=== PATIENT | female | born 1935 | race Caucasian/White ===

== ENCOUNTER 2017-10-03 10:35 | Inpatient (IN) | payer MEDICARE, OTHER ==
[~2017-10-03] VITALS: Ht 162.6 cm; Wt 74.2 kg
[2017-10-03] MEDS ORDERED: CHOL5000 PO (15:07)
[2017-10-03] MEDS ORDERED: MISO200T4 PO (15:07)
[2017-10-03] MEDS ORDERED: FENO145T32 PO (15:07)
[2017-10-03] MEDS ORDERED: APIX5TAB PO (15:07)
[2017-10-03] MEDS ORDERED: EZET10TA18 PO (15:07)
[2017-10-03] MEDS ORDERED: VIT1TABL32 PO (15:07)
[2017-10-03] MEDS ORDERED: MULT-672 PO (15:07)
[2017-10-03] MEDS ORDERED: CYAN50003 PO (15:07)
[2017-10-03] MEDS ORDERED: MELA1TAB22 PO (15:07)
[2017-10-03] MEDS ORDERED: ASCO10004 PO (15:07)
[2017-10-03] MEDS ORDERED: ESTR0.6246 PO (15:07)
[2017-10-03] MEDS ORDERED: ESOM40CA PO (15:07)
[2017-10-03] MEDS ORDERED: SENN8.6T58 PO (15:07)
[2017-10-03] MEDS ORDERED: GABA300C10 PO (15:07)
[2017-10-03] MEDS ORDERED: TOLT2TAB4 PO (15:07)
[2017-10-03] MEDS ORDERED: DIPH25CA61 PO (15:07)
[2017-10-03] MEDS ORDERED: ALPR0.254 PO (15:07)
[2017-10-03] MEDS ORDERED: FLUO10TA PO (15:07)
[2017-10-03] MEDS ORDERED: FERR-46 PO (15:07)
[2017-10-03] MEDS ORDERED: ASPI-496 PO (15:07)
[2017-10-03] MEDS ORDERED: linzess PO (15:07)
[2017-10-03] MEDS ORDERED: SUCR1TAB PO (15:07)
[2017-10-03] MEDS ORDERED: METO25TA35 PO (15:07)
[2017-10-07] MEDS ORDERED: LACTATED RINGERS 1,000 ML IV SCH (06:13)
[2017-10-07 06:43] VITALS: BP 165/78
[2017-10-07] MEDS ORDERED: BUPIVACAINE/PF-EPI 0.5% 1:200K ONE (06:50)
[2017-10-07] MEDS ORDERED: THROMBIN 5,000 UNIT VIAL TP ONE ×2 (07:02→08:48)
[2017-10-07] MEDS ORDERED: LIDOCAINE GEL 2%, 5ML ONE (07:25)
[2017-10-07] MEDS ORDERED: FENTANYL PF 100 MCG/2ML ONE ×3 (07:25→11:09)
[2017-10-07] MEDS ORDERED: LIDOCAINE-MPF 2% ,5ML ONE (07:27)
[2017-10-07] MEDS ORDERED: GABAPENTIN 300 MG CAPSULE PO ONE (07:30)
[2017-10-07] MEDS ORDERED: METOPROLOL TARTRATE 25 MG TABLET PO ONE (07:30)
[2017-10-07] MEDS ORDERED: ACETAMINOPHEN 500 MG TABLET PO ONE (07:30)
[2017-10-07] MEDS ORDERED: ONDANSETRON ODT 8 MG PO ONE (07:30)
[2017-10-07] MEDS ORDERED: ROCURONIUM 10 MG/ML,10ML ONE (07:41)
[2017-10-07] MEDS ORDERED: SUCCINYLCHOLINE 20 MG/ML, 10ML ONE (07:41)
[2017-10-07] MEDS ORDERED: DEXAMETHASONE 4 MG/ML, 1ML ONE (08:21)
[2017-10-07] MEDS ORDERED: PROPOFOL 10 MG/ML, 20ML ONE (08:21)
[2017-10-07] MEDS ORDERED: CEFAZOLIN 1,000 MG ONE (08:21)
[2017-10-07] MEDS ORDERED: ALBUTEROL/IPRATROPIUM 2.5MG/0.5MG, 3 ML NPPB PRN (08:30)
[2017-10-07] MEDS ORDERED: hydrALAzine 20 MG/ML, 1ML IV PRN (08:30)
[2017-10-07] MEDS ORDERED: HYDROmorphone 1 MG/ML, 1ML IV PRN (08:30)
[2017-10-07] MEDS ORDERED: OXYcodone 5 MG/5 ML ORAL.SOL UDC PO PRN (08:30)
[2017-10-07] MEDS ORDERED: PROMETHAZINE 25 MG/ML, 1ML IV PRN (08:30)
[2017-10-07] MEDS ORDERED: ONDANSETRON 2MG/ML, 2ML IV PRN ×2 (08:30→13:30)
[2017-10-07] MEDS ORDERED: MIDAZOLAM 1 MG/ML, 2ML IV PRN (08:30)
[2017-10-07] MEDS ORDERED: VANCOMYCIN 1,000 MG ONE (09:42)
[2017-10-07] MEDS ORDERED: VANCOMYCIN 1,000 MG IM ONE (09:44)
[2017-10-07] MEDS ORDERED: METOPROLOL 1 MG/ML, 5ML ONE ×2 (10:28→12:25)
[2017-10-07] MEDS: METOPROLOL 1 MG/ML, 5ML IV PRN ×6 (10:40→11:51)
[2017-10-07] MEDS ORDERED: HYDROmorphone 2 MG/ML, 1ML ONE (10:54)
[2017-10-07] MEDS ORDERED: OXYcodone 5 MG/5 ML ORAL.SOL UDC ONE (10:55)
[2017-10-07] MEDS ORDERED: TRANEXAMIC ACID 100 MG/ML, 10ML IVPB ONE (11:00)
[2017-10-07] MEDS ORDERED: TRANEXAMIC ACID 1,000 MG in SODIUM CHLORIDE 0.9% 100 ML IV ONE (11:00)
[2017-10-07] MEDS: FENTANYL PF 100 MCG/2ML IV PRN ×2 (11:10→12:30)
[2017-10-07] MEDS ORDERED: METOPROLOL 1 MG/ML, 5ML IV PRN (12:30)
[2017-10-07 13:10] VITALS: BP 142/69
[2017-10-07] MEDS ORDERED: KETOROLAC 30 MG/1 ML IV ONE (13:30)
[2017-10-07] MEDS ORDERED: DIAZEPAM 5 MG/ML, 2ML IV PRN (13:30)
[2017-10-07] MEDS ORDERED: HYDROmorphone 2 MG/ML, 1ML IM PRN (13:30)
[2017-10-07] MEDS ORDERED: DIPHENHYDRAMINE 50 MG CAPSULE PO PRN (13:30)
[2017-10-07] MEDS ORDERED: PROMETHAZINE 25 MG/ML, 1ML IM PRN (13:30)
[2017-10-07] MEDS ORDERED: DIPHENHYDRAMINE 50 MG/ML, 1ML IM PRN (13:30)
[2017-10-07] MEDS ORDERED: LORazepam 1MG TABLET PO PRN (13:30)
[2017-10-07] MEDS ORDERED: DIPHENHYDRAMINE 50 MG/ML, 1ML IVPush PRN (13:30)
[2017-10-07] MEDS ORDERED: DIAZEPAM 5 MG TABLET PO PRN (13:30)
[2017-10-07] MEDS ORDERED: MAGNESIUM HYDROXIDE 8%, 30ML UDC PO PRN (13:30)
[2017-10-07] MEDS ORDERED: KETOROLAC 30 MG/1 ML IM PRN (13:30)
[2017-10-07] MEDS ORDERED: BISACODYL 10 MG SUPP PR PRN (13:30)
[2017-10-07] MEDS ORDERED: LABETALOL 5MG/ML, 20ML IV PRN ×2 (13:30)
[2017-10-07] MEDS ORDERED: HYDROmorphone 2MG TABLET PO PRN (13:30)
[2017-10-07 14:00] VITALS: BP 144/60
[2017-10-07] MEDS ORDERED: ACETAMINOPHEN 650 MG SUPP PR PRN (14:00)
[2017-10-07] MEDS ORDERED: SODIUM CHLORIDE 0.9% 1,000 ML IV PRN (14:00)
[2017-10-07] MEDS ORDERED: DEXAMETHASONE 4 MG/ML, 1ML IVPush PRN (14:00)
[2017-10-07] MEDS ORDERED: ACETAMINOPHEN 325 MG TABLET PO PRN (14:00)
[2017-10-07] MEDS: OXYcodone IR 5MG TABLET PO PRN ×2 (16:27→19:47)
[2017-10-07] MEDS: MISOPROSTOL 200 MCG TABLET PO SCH ×2 (16:27→20:57)
[2017-10-07] MEDS: SUCRALFATE 1 GM TABLET PO SCH ×2 (16:32→20:57)
[2017-10-07 18:01] VITALS: BP 114/44
[2017-10-07] MEDS: D5%-0.9% NACL+KCL 20MEQ 1,000 ML IV SCH (18:14)
[2017-10-07] MEDS: METOPROLOL TARTRATE 25 MG TABLET PO SCH (18:14)
[2017-10-07] MEDS: CEFAZOLIN PMX 1GM/50ML 50 ML IVPB SCH (18:14)
[2017-10-07 19:24] VITALS: BP 124/54
[2017-10-07] MEDS ORDERED: SUCRALFATE 1 GM/10 ML UDC ONE (20:44)
[2017-10-07] MEDS: MELATONIN 3 MG TABLET PO SCH (20:58)
[2017-10-07] MEDS: ASCORBIC ACID 500 MG TABLET PO SCH (20:58)
[2017-10-07] MEDS: GABAPENTIN 300 MG CAPSULE PO SCH (20:58)
[2017-10-07] MEDS ORDERED: TOLTERODINE 2MG TABLET PO SCH (21:00)
[2017-10-07] MEDS ORDERED: ZOLPIDEM 5MG TABLET PO PRN (21:00)
[2017-10-07] MEDS ORDERED: KETOROLAC 30 MG/1 ML IV PRN (21:30)
[2017-10-08 00:47] VITALS: BP 144/59
[2017-10-08] MEDS: CEFAZOLIN PMX 1GM/50ML 50 ML IVPB SCH (02:03)
[2017-10-08] MEDS: OXYcodone IR 5MG TABLET PO PRN ×5 (04:45→21:11)
[2017-10-08 04:47] VITALS: BP 145/62
[2017-10-08 05:13] LABS: BASOPHILS # (AUTO) 0.01 x10^3/uL (0-0.1); BASOPHILS % (AUTO) 0 % (0-1); EOSINOPHILS # (AUTO) 0.03 x10^3/uL (0-0.4); EOSINOPHILS % (AUTO) 0 % (1-7); LYMPHOCYTES # (AUTO) 0.74 x10^3/uL (1-3.4); LYMPHOCYTES % (AUTO) 11 % (22-44); MD NO; MEAN CORPUSCULAR HEMOGLOBIN 31.4 pg (27.0-34.8); MEAN CORPUSCULAR HGB CONC 32.9 g/dL (32.4-35.8); MEAN CORPUSCULAR VOLUME 95.7 fL (80-100); MEAN PLATELET VOLUME 8.9 fL (7.4-10.4); MONOCYTES # (AUTO) 0.53 x10^3/uL (0.2-0.8); MONOCYTES % (AUTO) 8 % (2-9); NEUTROPHILS # (AUTO) 5.68 x10^3/uL (1.8-6.8); NEUTROPHILS % (AUTO) 81 % (42-75); PLATELET COUNT 170 x10^3/uL (130-400); RED BLOOD COUNT 3.51 x10^6/uL (3.82-5.3); RED CELL DISTRIBUTION WIDTH 15.4 % (9.6-15.2)
[2017-10-08] MEDS ORDERED: SUCRALFATE 1 GM/10 ML UDC ONE ×2 (05:51→11:35)
[2017-10-08] MEDS: SUCRALFATE 1 GM TABLET PO SCH ×4 (05:53→21:11)
[2017-10-08] MEDS: ASPIRIN 81 MG TABLET EC PO SCH (05:53)
[2017-10-08] MEDS: METOPROLOL TARTRATE 25 MG TABLET PO SCH ×2 (05:53→18:32)
[2017-10-08] MEDS: D5%-0.9% NACL+KCL 20MEQ 1,000 ML IV SCH ×2 (05:59→15:00)
[2017-10-08 07:02] VITALS: BP 125/70
[2017-10-08 07:04] VITALS: BP 125/70
[2017-10-08] MEDS: PANTOPROZOLE 40MG TABLET PO SCH (07:49)
[2017-10-08] MEDS: FERROUS SULFATE 325 MG TABLET PO SCH (08:41)
[2017-10-08] MEDS: MULTIVITAMINS/MINERALS TABLET PO SCH (08:41)
[2017-10-08] MEDS: FENOFIBRATE 145 MG TABLET PO SCH (08:41)
[2017-10-08] MEDS: ASCORBIC ACID 500 MG TABLET PO SCH ×2 (08:41→21:11)
[2017-10-08] MEDS: FLUOXETINE 10 MG CAP PO SCH (08:41)
[2017-10-08] MEDS: SENNA/DOCUSATE TABLET PO SCH (08:41)
[2017-10-08] MEDS: CHOLECALCIFEROL 5,000u TAB PO SCH (08:41)
[2017-10-08] MEDS: EZETIMIBE 10 MG TABLET PO SCH (08:41)
[2017-10-08] MEDS: MISOPROSTOL 200 MCG TABLET PO SCH ×3 (08:42→21:12)
[2017-10-08] MEDS: SENNOSIDES 8.6 MG TABLET PO SCH (08:42)
[2017-10-08] MEDS: ESTROGENS CONJUGATED 0.625 MG TABLET PO SCH (08:42)
[2017-10-08] MEDS: CYANOCOBALAMIN 1,000 MCG TABLET PO SCH (12:20)
[2017-10-08 12:53] VITALS: BP 140/72
[2017-10-08] MEDS: OXYBUTYNIN CHLORIDE 5 MG TABLET PO SCH ×2 (15:55→21:11)
[2017-10-08 20:46] VITALS: BP 144/75
[2017-10-08] MEDS: GABAPENTIN 300 MG CAPSULE PO SCH (21:00)
[2017-10-08] MEDS: MELATONIN 3 MG TABLET PO SCH (21:12)
[2017-10-09] MEDS: D5%-0.9% NACL+KCL 20MEQ 1,000 ML IV SCH ×3 (00:15→20:48)
[2017-10-09] MEDS: OXYcodone IR 5MG TABLET PO PRN ×5 (01:15→20:44)
[2017-10-09 01:52] VITALS: BP 162/82
[2017-10-09 05:30] LABS: BASOPHILS # (AUTO) 0.02 x10^3/uL (0-0.1); BASOPHILS % (AUTO) 0 % (0-1); EOSINOPHILS # (AUTO) 0.12 x10^3/uL (0-0.4); EOSINOPHILS % (AUTO) 2 % (1-7); LYMPHOCYTES # (AUTO) 0.84 x10^3/uL (1-3.4); LYMPHOCYTES % (AUTO) 16 % (22-44); MD NO; MEAN CORPUSCULAR HEMOGLOBIN 31.7 pg (27.0-34.8); MEAN CORPUSCULAR HGB CONC 33.4 g/dL (32.4-35.8); MEAN CORPUSCULAR VOLUME 94.9 fL (80-100); MEAN PLATELET VOLUME 8.8 fL (7.4-10.4); MONOCYTES % (AUTO) 11 % (2-9); NEUTROPHILS # (AUTO) 3.81 x10^3/uL (1.8-6.8); NEUTROPHILS % (AUTO) 71 % (42-75); PLATELET COUNT 169 x10^3/uL (130-400); RED BLOOD COUNT 3.24 x10^6/uL (3.82-5.3); RED CELL DISTRIBUTION WIDTH 15.2 % (9.6-15.2)
[2017-10-09] MEDS: SUCRALFATE 1 GM TABLET PO SCH ×4 (06:10→21:00)
[2017-10-09] MEDS: ASPIRIN 81 MG TABLET EC PO SCH (06:10)
[2017-10-09] MEDS: METOPROLOL TARTRATE 25 MG TABLET PO SCH ×2 (06:10→18:00)
[2017-10-09 07:10] VITALS: BP 146/63
[2017-10-09] MEDS: SENNA/DOCUSATE TABLET PO SCH (09:00)
[2017-10-09] MEDS: SENNOSIDES 8.6 MG TABLET PO SCH (09:00)
[2017-10-09] MEDS: MULTIVITAMINS/MINERALS TABLET PO SCH (09:00)
[2017-10-09] MEDS: PANTOPROZOLE 40MG TABLET PO SCH ×2 (09:01→10:29)
[2017-10-09] MEDS: CYANOCOBALAMIN 1,000 MCG TABLET PO SCH (09:01)
[2017-10-09] MEDS: ESTROGENS CONJUGATED 0.625 MG TABLET PO SCH ×2 (09:01→10:29)
[2017-10-09] MEDS: ASCORBIC ACID 500 MG TABLET PO SCH ×2 (09:01→23:53)
[2017-10-09] MEDS: EZETIMIBE 10 MG TABLET PO SCH ×2 (09:01→10:29)
[2017-10-09] MEDS: OXYBUTYNIN CHLORIDE 5 MG TABLET PO SCH ×3 (09:02→21:31)
[2017-10-09] MEDS: CHOLECALCIFEROL 5,000u TAB PO SCH ×2 (09:02→10:30)
[2017-10-09] MEDS: FERROUS SULFATE 325 MG TABLET PO SCH (09:02)
[2017-10-09] MEDS: MISOPROSTOL 200 MCG TABLET PO SCH ×3 (09:02→20:44)
[2017-10-09] MEDS: FENOFIBRATE 145 MG TABLET PO SCH (09:02)
[2017-10-09] MEDS: FLUOXETINE 10 MG CAP PO SCH (09:02)
[2017-10-09 13:09] VITALS: BP 142/63
[2017-10-09 18:30] VITALS: BP 130/58
[2017-10-09 18:42] VITALS: BP 153/79
[2017-10-09] MEDS: GABAPENTIN 300 MG CAPSULE PO SCH (21:00)
[2017-10-09] MEDS: MELATONIN 3 MG TABLET PO SCH (21:00)
[2017-10-09] MEDS ORDERED: SUCRALFATE 1 GM/10 ML UDC ONE (21:26)
[2017-10-09] MEDS: SUCRALFATE 1 GM/10 ML UDC PO SCH (23:55)
[2017-10-10 01:55] VITALS: BP 159/76
[2017-10-10] MEDS: OXYcodone IR 5MG TABLET PO PRN ×3 (04:10→16:23)
[2017-10-10 05:25] LABS: BASOPHILS # (AUTO) 0.01 x10^3/uL (0-0.1); BASOPHILS % (AUTO) 0 % (0-1); EOSINOPHILS # (AUTO) 0.19 x10^3/uL (0-0.4); EOSINOPHILS % (AUTO) 4 % (1-7); LYMPHOCYTES # (AUTO) 0.78 x10^3/uL (1-3.4); LYMPHOCYTES % (AUTO) 15 % (22-44); MD NO; MEAN CORPUSCULAR HEMOGLOBIN 31.1 pg (27.0-34.8); MEAN CORPUSCULAR HGB CONC 33.1 g/dL (32.4-35.8); MEAN CORPUSCULAR VOLUME 93.9 fL (80-100); MEAN PLATELET VOLUME 8.6 fL (7.4-10.4); MONOCYTES # (AUTO) 0.54 x10^3/uL (0.2-0.8); MONOCYTES % (AUTO) 11 % (2-9); NEUTROPHILS # (AUTO) 3.58 x10^3/uL (1.8-6.8); NEUTROPHILS % (AUTO) 70 % (42-75); PLATELET COUNT 174 x10^3/uL (130-400); RED CELL DISTRIBUTION WIDTH 14.7 % (9.6-15.2)
[2017-10-10] MEDS: SUCRALFATE 1 GM/10 ML UDC PO SCH ×4 (06:38→20:44)
[2017-10-10] MEDS: ASPIRIN 81 MG TABLET EC PO SCH (06:38)
[2017-10-10] MEDS: METOPROLOL TARTRATE 25 MG TABLET PO SCH ×2 (06:49→18:23)
[2017-10-10] MEDS: CHOLECALCIFEROL 5,000u TAB PO SCH (07:51)
[2017-10-10] MEDS: SENNA/DOCUSATE TABLET PO SCH (07:52)
[2017-10-10] MEDS: FENOFIBRATE 145 MG TABLET PO SCH (07:52)
[2017-10-10] MEDS: EZETIMIBE 10 MG TABLET PO SCH (07:52)
[2017-10-10] MEDS: ESTROGENS CONJUGATED 0.625 MG TABLET PO SCH (07:52)
[2017-10-10] MEDS: ASCORBIC ACID 500 MG TABLET PO SCH ×2 (07:52→21:00)
[2017-10-10] MEDS: FERROUS SULFATE 325 MG TABLET PO SCH (07:52)
[2017-10-10] MEDS: PANTOPROZOLE 40MG TABLET PO SCH (07:52)
[2017-10-10] MEDS: D5%-0.9% NACL+KCL 20MEQ 1,000 ML IV SCH ×3 (07:53→21:58)
[2017-10-10 08:31] VITALS: BP 111/48
[2017-10-10 08:47] VITALS: BP 133/90
[2017-10-10] MEDS: CYANOCOBALAMIN 1,000 MCG TABLET PO SCH (10:20)
[2017-10-10] MEDS: FLUOXETINE 10 MG CAP PO SCH (10:21)
[2017-10-10] MEDS: MULTIVITAMINS/MINERALS TABLET PO SCH (10:21)
[2017-10-10] MEDS: OXYBUTYNIN CHLORIDE 5 MG TABLET PO SCH ×3 (10:21→21:56)
[2017-10-10] MEDS: MISOPROSTOL 200 MCG TABLET PO SCH ×3 (10:21→21:55)
[2017-10-10] MEDS: SENNOSIDES 8.6 MG TABLET PO SCH (10:21)
[2017-10-10 14:04] VITALS: BP 173/74
[2017-10-10 15:00] VITALS: BP 167/90
[2017-10-10 19:05] VITALS: BP 146/64
[2017-10-10] MEDS: APIXABAN 5 MG TABLET PO SCH (20:35)
[2017-10-10] MEDS: MELATONIN 3 MG TABLET PO SCH (21:00)
[2017-10-10] MEDS: GABAPENTIN 300 MG CAPSULE PO SCH (21:00)
[2017-10-11] MEDS: OXYcodone IR 5MG TABLET PO PRN ×3 (00:10→10:25)
[2017-10-11 02:23] VITALS: BP 156/75
[2017-10-11 05:02] LABS: BASOPHILS # (AUTO) 0.03 x10^3/uL (0-0.1); BASOPHILS % (AUTO) 1 % (0-1); EOSINOPHILS # (AUTO) 0.26 x10^3/uL (0-0.4); EOSINOPHILS % (AUTO) 5 % (1-7); LYMPHOCYTES # (AUTO) 0.83 x10^3/uL (1-3.4); LYMPHOCYTES % (AUTO) 17 % (22-44); MD NO; MEAN CORPUSCULAR HEMOGLOBIN 31.5 pg (27.0-34.8); MEAN CORPUSCULAR HGB CONC 33.3 g/dL (32.4-35.8); MEAN CORPUSCULAR VOLUME 94.7 fL (80-100); MEAN PLATELET VOLUME 8.8 fL (7.4-10.4); MONOCYTES # (AUTO) 0.51 x10^3/uL (0.2-0.8); MONOCYTES % (AUTO) 10 % (2-9); NEUTROPHILS # (AUTO) 3.28 x10^3/uL (1.8-6.8); NEUTROPHILS % (AUTO) 67 % (42-75); PLATELET COUNT 214 x10^3/uL (130-400); RED BLOOD COUNT 3.66 x10^6/uL (3.82-5.3); RED CELL DISTRIBUTION WIDTH 14.8 % (9.6-15.2)
[2017-10-11] MEDS: ASPIRIN 81 MG TABLET EC PO SCH (05:45)
[2017-10-11] MEDS: SUCRALFATE 1 GM/10 ML UDC PO SCH (05:45)
[2017-10-11] MEDS: METOPROLOL TARTRATE 25 MG TABLET PO SCH (05:45)
[2017-10-11] MEDS: PANTOPROZOLE 40MG TABLET PO SCH (07:30)
[2017-10-11 08:05] VITALS: BP 156/55
[2017-10-11] MEDS: SENNOSIDES 8.6 MG TABLET PO SCH (09:00)
[2017-10-11] MEDS: MISOPROSTOL 200 MCG TABLET PO SCH (09:01)
[2017-10-11] MEDS: EZETIMIBE 10 MG TABLET PO SCH (09:01)
[2017-10-11] MEDS: CYANOCOBALAMIN 1,000 MCG TABLET PO SCH ×2 (09:01→09:11)
[2017-10-11] MEDS: SENNA/DOCUSATE TABLET PO SCH (09:01)
[2017-10-11] MEDS: APIXABAN 5 MG TABLET PO SCH (09:01)
[2017-10-11] MEDS: ASCORBIC ACID 500 MG TABLET PO SCH ×2 (09:01→09:12)
[2017-10-11] MEDS: OXYBUTYNIN CHLORIDE 5 MG TABLET PO SCH (09:01)
[2017-10-11] MEDS: CHOLECALCIFEROL 5,000u TAB PO SCH ×2 (09:01→09:11)
[2017-10-11] MEDS: FLUOXETINE 10 MG CAP PO SCH (09:01)
[2017-10-11] MEDS: FERROUS SULFATE 325 MG TABLET PO SCH (09:01)
[2017-10-11] MEDS: ESTROGENS CONJUGATED 0.625 MG TABLET PO SCH (09:08)
[2017-10-11] MEDS: MULTIVITAMINS/MINERALS TABLET PO SCH ×2 (09:08→09:11)
[2017-10-11] MEDS: FENOFIBRATE 145 MG TABLET PO SCH (09:15)
[2017-10-11] MEDS ORDERED: OXYC5TAB3 PO (10:56)
[2017-10-11] MEDS ORDERED: CYCL-259 PO (10:57)
[2017-10-11] MEDS ORDERED: CEPH-368 PO (10:59)
== END 2017-10-11 12:05 | disposition home or self-care (01) | DRG 478 ==
LOC: ORIP 10:35 → UNDOADMIN 10:35 → ORIP 10-07 05:27 → 4NOR 10-07 13:04 → DCLOUNGE 10-11 11:43
PROVIDERS: ADMIT Orthopaedic Surgery Orthopaedic Surgery of the Spine; ATTEND Orthopaedic Surgery Orthopaedic Surgery of the Spine
PROC: 0PU43JZ Supplement Thoracic Vertebra with Synthetic Substitute, Percutaneous Approach (ICD-10-PCS; 2017-10-07)
PROC: 0SP004Z Removal of Internal Fixation Device from Lumbar Vertebral Joint, Open Approach (ICD-10-PCS; 2017-10-07)
PROC: 0PS43ZZ Reposition Thoracic Vertebra, Percutaneous Approach (ICD-10-PCS; principal; 2017-10-07 07:30)
PROC: 0PB40ZX Excision of Thoracic Vertebra, Open Approach, Diagnostic (ICD-10-PCS; 2017-10-07 07:30)
DX: T84.84XA Pain due to internal orthopedic prosthetic devices, implants and grafts, initial encounter (principal); M80.08XA Age-related osteoporosis with current pathological fracture, vertebra(e), initial encounter for fracture; I10 Essential (primary) hypertension; Y83.1 Surgical operation with implant of artificial internal device as the cause of abnormal reaction of the patient, or of later complication, without mention of misadventure at the time of the procedure; F32.9 Major depressive disorder, single episode, unspecified; Z95.5 Presence of coronary angioplasty implant and graft; Z88.5 Allergy status to narcotic agent; Y92.89 Other specified places as the place of occurrence of the external cause
CPT/HCPCS: 36415; 72072; 76000; 85025; 88307; 88311; C1713; G0378; J0690; J1100; J1885; J2704; J3010; J3370; J3490; Q0162; C9362; J0330; J3480; J7120

== ENCOUNTER → 2017-10-03 | Outpatient (CLI) | payer MEDICARE, OTHER ==
[~2017-10-03] MED LIST: ALPR0.254 PO; APIX5TAB PO; ASCO10004 PO; ASPI-496 PO; CHOL5000 PO; CYAN50003 PO; DIPH25CA61 PO; ESOM40CA PO; ESTR0.6246 PO; EZET10TA18 PO; FENO145T32 PO; FERR-46 PO; FLUO10TA PO; GABA300C10 PO; MELA1TAB22 PO; METO25TA35 PO; MISO200T4 PO; MULT-672 PO; SENN8.6T58 PO; SUCR1TAB PO; TOLT2TAB4 PO; VIT1TABL32 PO; linzess PO
[2017-10-03 12:16] LABS: BASOPHILS # (AUTO) 0.03 x10^3/uL (0-0.1); BASOPHILS % (AUTO) 1 % (0-1); EOSINOPHILS # (AUTO) 0.09 x10^3/uL (0-0.4); EOSINOPHILS % (AUTO) 2 % (1-7); LYMPHOCYTES % (AUTO) 21 % (22-44); MD NO; MEAN CORPUSCULAR HEMOGLOBIN 31.4 pg (27.0-34.8); MEAN CORPUSCULAR HGB CONC 33.1 g/dL (32.4-35.8); MEAN CORPUSCULAR VOLUME 94.9 fL (80-100); MEAN PLATELET VOLUME 8.4 fL (7.4-10.4); MONOCYTES # (AUTO) 0.38 x10^3/uL (0.2-0.8); MONOCYTES % (AUTO) 9 % (2-9); NEUTROPHILS # (AUTO) 2.89 x10^3/uL (1.8-6.8); NEUTROPHILS % (AUTO) 67 % (42-75); PLATELET COUNT 231 x10^3/uL (130-400); RED BLOOD COUNT 4.16 x10^6/uL (3.82-5.3); RED CELL DISTRIBUTION WIDTH 15.1 % (9.6-15.2)
[2017-10-03 12:25] LABS: INTERNATIONAL NORMALIZED RATIO 1.04 (0.93-1.1); PROTHROMBIN TIME 10.7 Seconds (9.6-11.5)
[2017-10-03 12:27] LABS: CALCIUM 8.8 mg/dL (8.5-10.1); CREATININE 0.67 mg/dL (0.55-1.02)
[2017-10-03 12:28] LABS: MICROSCOPIC INDICATED
[2017-10-03 12:34] LABS: ANION GAP 5 mmol/L (5-15); CHLORIDE 106 mmol/L (98-107); HCT (SEDRATE) 39.4 % (34.6-47.8)
[2017-10-03 12:44] LABS: CULTURE INDICATED? YES
== END | disposition home or self-care (01) ==
LOC: STAR 10:30
PROVIDERS: ATTEND Orthopaedic Surgery Orthopaedic Surgery of the Spine
DX: Z01.818 Encounter for other preprocedural examination (principal); S22.080A Wedge compression fracture of T11-T12 vertebra, initial encounter for closed fracture; T85.848A Pain due to other internal prosthetic devices, implants and grafts, initial encounter; I25.2 Old myocardial infarction; R00.1 Bradycardia, unspecified; X58.XXXA Exposure to other specified factors, initial encounter; Y93.89 Activity, other specified; Y92.89 Other specified places as the place of occurrence of the external cause; Y99.8 Other external cause status
CPT/HCPCS: 36415; 71046; 80048; 81001; 85025; 85610; 85651; 85730; 87086; 93005

== ENCOUNTER → 2018-07-26 | Outpatient (CLI) | payer MEDICARE, OTHER ==
[~2018-07-26] MED LIST changes: +CEPH-368 PO; +CYCL-259 PO; +OXYC5TAB3 PO
== END | disposition home or self-care (01) ==
LOC: PETCFH 08:38
DX: R10.9 Unspecified abdominal pain (principal)
CPT/HCPCS: 78264; A9541

== ENCOUNTER 2018-09-01 08:36 | Outpatient (CLI) | payer MEDICARE, OTHER | END 2018-09-01 23:59 | disposition home or self-care (01) | LOC: RAD 08:36 | PROVIDERS: ATTEND Thoracic Surgery (Cardiothoracic Vascular Surgery) | DX: K22.2 Esophageal obstruction (principal); M51.36 Other intervertebral disc degeneration, lumbar region; M16.0 Bilateral primary osteoarthritis of hip | CPT/HCPCS: 74241 ==

== ENCOUNTER 2019-04-12 13:18 | Outpatient (CLI) | payer MEDICARE, OTHER ==
[~2019-04-12 13:18] MED LIST changes: -EZET10TA18 PO; +EZET10TA70 PO
[2019-04-12] MEDS ORDERED: SULF1TAB24 PO (14:56)
[2019-04-12] MEDS ORDERED: LISI-167 PO (14:56)
[2019-04-12] MEDS ORDERED: ATOR-2 PO (14:56)
== END 2019-04-12 23:59 | disposition home or self-care (01) ==
LOC: STAR 13:18
PROVIDERS: ATTEND Urology
DX: Z01.818 Encounter for other preprocedural examination (principal); N20.0 Calculus of kidney; I51.7 Cardiomegaly; I21.9 Acute myocardial infarction, unspecified
CPT/HCPCS: 93005

== ENCOUNTER 2019-04-18 08:59 | Outpatient (CLI) | payer MEDICARE, OTHER ==
[~2019-04-18] VITALS: Ht 162.6 cm; Wt 63.1 kg
[~2019-04-18 08:59] MED LIST changes: +ATOR-2 PO; +LISI-167 PO; +SULF1TAB24 PO
[2019-04-18 09:35] VITALS: BP 176/68
[2019-04-18] MEDS ORDERED: LACTATED RINGERS 1,000 ML IV ONE (09:51)
[2019-04-18] MEDS ORDERED: PROPOFOL 50 ML ONE (11:55)
[2019-04-18] MEDS ORDERED: FENTANYL PF 250 MCG/5ML ONE (11:56)
[2019-04-18 12:22] LABS: CULTURE INDICATED? YES; MICROSCOPIC INDICATED
== END 2019-04-18 23:59 | disposition home or self-care (01) ==
LOC: OUT 08:59 → EDSTATUS 11:30 → OUT 23:59
PROVIDERS: ATTEND Urology
DX: Z01.818 Encounter for other preprocedural examination (principal); N20.0 Calculus of kidney; I10 Essential (primary) hypertension; M19.90 Unspecified osteoarthritis, unspecified site; J44.9 Chronic obstructive pulmonary disease, unspecified; Z98.890 Other specified postprocedural states; Z90.710 Acquired absence of both cervix and uterus; Z90.49 Acquired absence of other specified parts of digestive tract; Z88.5 Allergy status to narcotic agent; Z88.3 Allergy status to other anti-infective agents; Z88.8 Allergy status to other drugs, medicaments and biological substances; Z79.899 Other long term (current) drug therapy; Z87.891 Personal history of nicotine dependence; Z82.49 Family history of ischemic heart disease and other diseases of the circulatory system; Z82.5 Family history of asthma and other chronic lower respiratory diseases; Z85.43 Personal history of malignant neoplasm of ovary
CPT/HCPCS: 81001; 87086; J2704; J3010; J7120

== ENCOUNTER → 2019-06-15 | Outpatient (CLI) | payer MEDICARE, OTHER ==
[2019-06-15 14:24] LABS: ALANINE AMINOTRANSFERASE 37 U/L (12-78); ALBUMIN 3.1 g/dL (3.4-5.0); ANION GAP 6 mmol/L (5-15); CALCIUM 8.6 mg/dL (8.5-10.1); CHLORIDE 104 mmol/L (98-107)
[2019-06-15 14:27] LABS: ALKALINE PHOSPHATASE 61 U/L (45-117); BILIRUBIN,TOTAL 0.4 mg/dL (0.2-1.0)
[2019-06-15 14:28] LABS: BASOPHILS # (AUTO) 0.02 x10^3/uL (0-0.1); BASOPHILS % (AUTO) 1 % (0-1); EOSINOPHILS % (AUTO) 2 % (1-7); LYMPHOCYTES # (AUTO) 0.81 x10^3/uL (1-3.4); LYMPHOCYTES % (AUTO) 19 % (22-44); MD NO; MEAN CORPUSCULAR HEMOGLOBIN 31.2 pg (27.0-34.8); MEAN CORPUSCULAR HGB CONC 32.7 g/dL (32.4-35.8); MEAN CORPUSCULAR VOLUME 95.3 fL (80-100); MEAN PLATELET VOLUME 9.2 fL (7.4-10.4); MONOCYTES # (AUTO) 0.43 x10^3/uL (0.2-0.8); MONOCYTES % (AUTO) 10 % (2-9); NEUTROPHILS # (AUTO) 2.96 x10^3/uL (1.8-6.8); NEUTROPHILS % (AUTO) 69 % (42-75); PLATELET COUNT 210 x10^3/uL (130-400); RED BLOOD COUNT 3.86 x10^6/uL (3.82-5.3); RED CELL DISTRIBUTION WIDTH 17.5 % (9.6-15.2)
[2019-06-15 14:31] LABS: MICROSCOPIC INDICATED
== END | disposition home or self-care (01) ==
LOC: STAR 12:38
PROVIDERS: ATTEND Urology
DX: Z01.818 Encounter for other preprocedural examination (principal); N20.0 Calculus of kidney; I51.7 Cardiomegaly; I21.4 Non-ST elevation (NSTEMI) myocardial infarction
CPT/HCPCS: 36415; 80053; 81001; 85025; 87077; 87086; 87186; 93005